=== PATIENT | male | born 1990 | race Caucasian/White ===

== ENCOUNTER 2022-06-10 11:44 | Emergency (ER) | payer OTHER, SELFPAY ==
--- NOTE | ~2022-06-10 | XR_ITS ---
EXAMINATION: XR thoracic spine 3V DATE: 06/10/2022 12:42 INDICATION: Thoracic back pain TECHNIQUE: AP, lateral and lateral swimmer's views of the thoracic spine were obtained. COMPARISON: None. FINDINGS: No fracture, dislocation, or subluxation. The vertebral body heights, alignment, and interv ertebral disc spaces are normal. The paravertebral soft tissues are unremarkable. There are 10 degree s of mid thoracic dextrocurvature. IMPRESSION: 1. No acute osseous abnormality. Reviewed, dictated and finalized at location A. IX REPAIRER
[2022-06-10 11:59] VITALS: BP 112/63; PULSE 60; RESP 18; TEMP 36.3; O2SAT 99
--- NOTE | 2022-06-10 14:30 | ED.GENADULT ---
HPI - General Adult General Chief complaint: Back Pain/Injury Stated complaint: back pain History of Present Illness HPI narrative: 32 y/o male. PMHx: None reported. Presents to [facility] today with acute complaints of mid-back pain, worse with bending or lifting. Pain is described as sharp, non-radiating, and present for the past 3-5 days respectively. He reports to work in the [employer] trade, and has been frequently lifting heavy work related equipment. -Denies falls or direct traumas. -No fever, neck pain. -No loss of extremity or bowel/bladder sensation or control. He has not yet sought out medical evaluation, minimal reliefs w/rest at home. No additional joint pain or myalgia. Related Data Allergies Allergy/AdvReac Type Severity Reaction Status Date / Time No Known Allergies Allergy Unverified 04/13/18 11:20 Review of Systems Review of Systems: CONSTITUTIONAL: Denies fever, chills, sweats. EYES: Denies visual changes, redness, discharge. ENT: Denies rhinorrhea, congestion, sore throat, otalgia. CARDIOVASCULAR: Denies chest pain, palpitations, edema. RESPIRATORY: Denies dyspnea, wheezing, cough GASTROINTESTINAL: Denies abdominal pain, nausea, vomiting, diarrhea. GENITOURINARY: Denies dysuria, hematuria, abnormal discharge SKIN: Denies rash or itching. MUSCULOSKELETAL: Acute back pain, No additional joint pain, or myalgia. NEUROLOGIC: Denies numbness, or focal weakness. PSYCHIATRIC: Denies anxiety or depression. Exam Narrative: GENERAL: This is a well-nourished, well-developed adult, in no apparent distress. HEAD: normocephalic, atraumatic. EYES: PERRL. EARS: External ears normal. NOSE: External nose normal. THROAT: Mucous membranes moist. NECK: Neck supple, non-tender without lymphadenopathy, masses or thyromegaly. CARDIOVASCULAR: Regular rate and rhythm. RESPIRATORY: Clear to auscultation. GASTROINTESTINAL: Abdomen soft, non-tender, nondistended. Bowel sounds are active. No guarding. SKIN: warm, intact with no suspicious lesions or rash NEURO: Alert, active, and age appropriate. No focal neurologic deficits. Good sensation and discrimination all extremities, no saddle paraesthesia. EXTREMITIES: With reproducible RT thoracic/lumbar muscle spasm. Mild thoracic spinal curvature. No appreciable mid-line spinal tenderness or step-off. He exhibits good strength in all extremities. Gait steady. Distal pulses and sensation intact. Remainder of musculoskeletal exam is normal. Course Course Level of Care: Express Care Visit Vital Signs Vital signs: Vital Signs Temperature 36.3 C L 06/10/22 11:59 Pulse Rate 60 06/10/22 11:59 Respiratory Rate 18 06/10/22 11:59 Blood Pressure 112/63 06/10/22 11:59 Pulse Oximetry 99 06/10/22 11:59 Oxygen Delivery Room Air 06/10/22 11:59 Temperature 36.3 C L 06/10/22 11:59 Pulse Rate 60 06/10/22 11:59 Respiratory Rate 18 06/10/22 11:59 Blood Pressure 112/63 06/10/22 11:59 Pulse Oximetry 99 06/10/22 11:59 Oxygen Delivery Room Air 06/10/22 11:59 Medical Decision Making MDM Narrative Medical decision making narrative: -Xray thoracic reveals 10% dextrocurvature. No acute osseous findings. -No neurovascular deficits. -DC to home stable. -Rest, avoid heavy lifting or exacerbating activity until healed. -NSAID/Tylenol alteration prn. -Will add steroid taper and Flexeril as directed. -PCP F/U 1WK. Consider additional OP imaging or PT therapies w/persistence. -ER W/Neurological or other emergent status change. Pt agrees. Differential Diagnosis Differential Diagnosis: Differential Diagnosis: Consideration of the following conditions may be warranted for the presenting problem, they are not final diagnoses: Sprain/strain, Muscle spasm, Contusion, Effusion, Bony Fracture, ligamentous injury, tendon injury, osteochondral disturbance, compartmental disruption, or other Vital Signs Vital Signs: Vital Signs T
== END 2022-06-10 13:00 | disposition home or self-care (01) ==
PROVIDERS: Emergency Provider Nurse Practitioner Adult Health
DX: S39.012A Strain of muscle, fascia and tendon of lower back, initial encounter (principal); X50.0XXA Overexertion from strenuous movement or load, initial encounter; Y99.0 Civilian activity done for income or pay
CPT/HCPCS: 72072; 99213; G0463